=== PATIENT | male | born 1955 | race Caucasian/White ===

== ENCOUNTER 2017-12-29 13:00 | Inpatient (IN) | payer BC ==
[2018-01-05] MEDS ORDERED: VANCOMYCIN HCL 1,000 MG in DEXTROSE 5 % IN WATER 250 ML IVPB ONE ×2 (06:00)
[2018-01-05] MEDS ORDERED: FAMOTIDINE 20MG TABLET PO ONE (06:00)
[2018-01-05] MEDS ORDERED: METOCLOPRAMIDE 10 MG TABLET PO ONE (06:00)
[2018-01-05] MEDS ORDERED: CEFAZOLIN 2 Gram 2 GM/50 ML BAG IVPB ONE (06:00)
[2018-01-05] MEDS ORDERED: CELECOXIB 100 MG CAPSULE PO ONE (06:00)
[2018-01-05] MEDS ORDERED: MECLIZINE 25 MG TABLET PO ONE (06:00)
[2018-01-05 09:01] LABS: ABO GROUP A; ANTIBODY SCREEN NEGATIVE (NEGATIVE); RH TYPE POSITIVE
[2018-01-05] MEDS ORDERED: 0.9 % SODIUM CHLORIDE 10 ML VIAL IVP ONE (10:44)
[2018-01-05] MEDS ORDERED: TRANEXAMIC ACID 1,000 MG/10 ML ML IV ONE ×2 (10:44→14:11)
[2018-01-05] MEDS ORDERED: HYDROCODONE/APAP 10/325 TABLET PO PRN (12:40)
[2018-01-05] MEDS ORDERED: TRAMADOL HCL 50 MG TABLET PO PRN (12:40)
[2018-01-05] MEDS ORDERED: ACETAMINOPHEN W/ CODEINE 300MG/60MG TABLET PO PRN ×2 (12:40)
[2018-01-05] MEDS ORDERED: KETOROLAC 30 MG/ML VIAL IVP PRN ×2 (12:40)
[2018-01-05] MEDS ORDERED: DIPHENHYDRAMINE HCL 25 MG CAPSULE PO PRN (12:40)
[2018-01-05] MEDS ORDERED: NALOXONE 0.4 MG/1 ML VIAL IVP PRN (12:40)
[2018-01-05] MEDS ORDERED: BISACODYL 10 MG SUPP RC PRN (12:40)
[2018-01-05] MEDS ORDERED: MAGNESIUM HYDROXIDE 30 ML UDC PO PRN (12:40)
[2018-01-05] MEDS ORDERED: ZOLPIDEM TARTRATE 5 MG TABLET PO PRN (12:40)
[2018-01-05] MEDS ORDERED: HYDROMORPHONE HCL 2 MG/ML VIAL IM PRN (12:40)
[2018-01-05] MEDS ORDERED: ONDANSETRON HCL IV 4 MG/2 ML VIAL IVP PRN (12:40)
[2018-01-05] MEDS ORDERED: AL HYDROX/MAG HYDROX 30ML UD PO PRN (12:40)
[2018-01-05] MEDS ORDERED: ACETAMINOPHEN 325 MG TAB PO PRN (12:40)
[2018-01-05] MEDS ORDERED: DEXAMETHASONE 4 MG/ML 1ML VIAL IVP ONE (13:08)
[2018-01-05] MEDS ORDERED: ROPIVACAINE HCL (NAROPIN) /PF 5MG/ML 20ML VIAL IV ONE (13:08)
[2018-01-05] MEDS ORDERED: BUPIVACAINE 0.75% IVP ONE (14:11)
[2018-01-05] MEDS: HYDROCODONE/APAP 10/325 TABLET PO PRN ×3 (14:51→22:23)
[2018-01-05] MEDS: GABAPENTIN 300 MG CAPSULE PO SCH ×2 (15:27→22:23)
[2018-01-05] MEDS: PANTOPRAZOLE SODIUM 40 MG TABLET PO SCH (15:27)
[2018-01-05] MEDS: CITALOPRAM 20 MG TABLET PO SCH (15:27)
--- NOTE | 2018-01-05 15:48 | Rehab Evaluation ---
Patient Information - Patient Information Diagnosis: DJD L knee Ordered Treatment: PT Evaluate and Treat Status: Initial Evaluation Surgery: Yes (L TKA) Date of Surgery: 01/05/18 Past Medical/Surgical Hx: PAST MEDICAL/SURGICAL HISTORY Past Surgical History bilat knee scope neck sx fusion appy thyroidectomy gallstones born without a gallbladder c scopes PMH - Respiratory Hx Respiratory Disorders No Comment: hx fx ribs PMH - Cardiovascular Hx Cardiovascular Disorders Yes Hx Hypertension Yes: on meds good control Exercise Tolerance Fair Comment: high cholesterol PMH - Neuro Hx Neurological Disorders No PMH - GI Hx Gastrointestinal Disorders Yes Hx Abdominal Pain Yes Hx Gastroesophageal Reflux Yes PMH - Hx Genitourinary Disorders Yes Hx Bladder Problem Yes: urine frequency on meds Hx Prostate Problems Yes: BPH PMH - Endocrine Hx Endocrine Disorders Yes Hx Thyroid Disease Yes: thyroidectomy yrs ago PMH - Musculoskeletal Hx Musculoskeletal Disorders Yes Hx Arthritis Yes: Bilateral knees PMH - Psych Hx Psychiatric Problems Yes Hx Anxiety Yes Hx Depression Yes: onset about 4 months ago with health issues was hospitalized Major Depressive Episode Yes Feelings of Hopelessness Yes PMH - Hematology/Oncology Hx Hematology/Oncology Yes Disorders Hx Bruising Yes: bruises easily Premorbid Status: Detail (prior to surgery the patient was independent with all mobility.) Social History: Detail (The patient lives with spouse in a one story house with basement. The patient's house has 4 steps at the enterance with a railing in the middle. The patient's bathroom is equipped with tub/shower combination with grab bars, hand held shower and tub bench and a standard toilet without grab bars. The patient has a walker with wheels.) Precautions: [place], Fall, Other (WBAT on the L LE.) - Time With Patient Total Time Spent With Patient (Min): 20 Treatment Procedures: Detail (Initial Evaluation and Gait training) Subjective Information - Subjective Information Per Patient (The patient complained of level 7 pain using 0 to 10 pain scale in L hamstring insertion region and quadriceps. The patient stated he was having difficulty getting comfortable and frequently changed position.) Objective Data - Mental Status Patient Orientation: Oriented x3 - Visual Perception Appears within normal limits for therapeutic activities - ROM Not within normal limits (The patient's L knee AROM was limited s/p surgery. All other LE AROM was WNL.) - Strength/Tone Not within normal limits (The patient's L LE strength was not tested secondary to status post surgery, however was functional ie: patient was able to acheive SLR. The patient's R LE strength was 4+ to 5/5 throughout.) - Bed Mobility Needs Assist (Not formally assessed. The patient was ambulating with RN when PT arrived.) - Transfers Independent (Independent with sit to and from stand transfer.) - Balance Balance Sitting: Good Balance Standing: Good - Sensation Intact - Gait Detail (The patient ambulated independently with front wheeled walker WBAT on the L LE a distance of 80 feet x 1 with assist of one to handle IV.) Therapy Assessment - Therapy Assessment Detail ( The patient was independent with ambulation and transfers. TKA HEP was not refused secondary to L knee pain. Feel the patient will progress well with mobility.) Problem List - Problem List Physical Therapy Problem List: Detail (1) Decreased L knee AROM and strength as to be expected following surgery 2) L knee pain 3) Nonambulatory on stairs) Goals - Goals Physical Therapy Goals: 1) The patient will be independent with bed mobility. 2 ) The patient will ambulate on stairs with supervision for safety only. 3) The patient will be independent with TKA HEP Prognosis - Prognosis Good Plan - Plan Physical Therapy Plan: PT 1-2 times a day for gait training on stairs, bed mobility and instruction in HEP.
--- NOTE | 2018-01-05 15:51 | Rehab Evaluation ---
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 a gallbladder c scopes PMH - Respiratory Hx Respiratory Disorders No Comment: hx fx ribs PMH - Cardiovascular Hx Cardiovascular Disorders Yes Hx Hypertension Yes: on meds good control Exercise Tolerance Fair Comment: high cholesterol PMH - Neuro Hx Neurological Disorders No PMH - GI Hx Gastrointestinal Disorders Yes Hx Abdominal Pain Yes Hx Gastroesophageal Reflux Yes PMH - Hx Genitourinary Disorders Yes Hx Bladder Problem Yes: urine frequency on meds Hx Prostate Problems Yes: BPH PMH - Endocrine Hx Endocrine Disorders Yes Hx Thyroid Disease Yes: thyroidectomy yrs ago PMH - Musculoskeletal Hx Musculoskeletal Disorders Yes Hx Arthritis Yes: Bilateral knees PMH - Psych Hx Psychiatric Problems Yes Hx Anxiety Yes Hx Depression Yes: onset about 4 months ago with health issues was hospitalized Major Depressive Episode Yes Feelings of Hopelessness Yes PMH - Hematology/Oncology Hx Hematology/Oncology Yes Disorders Hx Bruising Yes: bruises easily Premorbid Status: Detail (Pt lives with spouse in a 1 story house with basement , he stays on the main floor. He has 4 steps with a handrail in the center of the steps at his entrance. He has a tub/shower combination with grab bars, hand held shower and shower seat as well as a standard height toilet without grab bars. He has a 2 wheeled walker. His is responsible for home mgmt, meal prep and laundry and he is responsible for yard work. His sons will assist with this as needed.) Social History: Detail (Supportive ) Precautions: [place], Fall, Other (WBAT right LE) - Time With Patient Total Time Spent With Patient (Min): 30 Treatment Procedures: Detail (OT eval low complexity) Subjective Information - Subjective Information Per Patient Objective Data - Pain Pain Present: Yes (09/29) - Mental Status Patient Orientation: Oriented x3 - Visual Perception Appears within normal limits for therapeutic activities (Pt wears glasses at all times.) - ROM Within normal limits (Jeffrey UE WNL) - Strength/Tone Within normal limits (Jeffrey UE strength WNL) - Coordination Appears within normal limits for therapeutic activities - Transfers Independent (Sit to stand from chair height Indly.) - Balance Balance Sitting: Good Balance Standing: Good - Sensation Intact - Gait Detail (Pt ambulated in hallway with 2 wheeled walker and SBA.) - ADL's/IADL's Detail (Pt educated and able to demonstrate learning of modified LE dressing techniques including shorts, slipper socks and tennis shoes. Reviewed shower safety and pt able to verbalize understanding.) Therapy Assessment - Therapy Assessment Detail (Pt is Ind with LE dressing and self care activities.) Problem List - Problem List Occupational Therapy Problem List: Detail (No current OT problems identified.) Goals - Goals Occupational Therapy Goals: No current OT goals identified. Prognosis - Prognosis Good Plan - Plan Occupational Therapy Plan: No further IP OT recommended. Thank you for this referral.
--- NOTE | 2018-01-05 16:52 | Operative Note ---
DATE OF SURGERY: 01/05/18 PREOPERATIVE DIAGNOSIS: END-STAGE ARTHROSIS OF THE RIGHT KNEE. POSTOPERATIVE DIAGNOSIS: END-STAGE ARTHROSIS OF THE RIGHT KNEE. PROCEDURE: CEMENTED RIGHT TOTAL KNEE ARTHROPLASTY USING BRANDT-NEPHEW DASHAWN II COMPONENTS WITH A SIZE 6 OXINIUM FEMUR, A SIZE 5 STEM TIBIAL BASEPLATE, A 9 mm LIPPED HIGHLY CROSSLINKED TIBIAL INSERT, AND A 35 MM ALL-PLASTIC PATELLA. STAFF SURGEON: SANCHEZ SWEENEY M.D. ANESTHESIA: SPINAL. PREPARATION: CHLORAPREP. INDIVIDUAL CONSIDERATIONS: NONE. PROCEDURE: The patient was taken to the Operating Room and placed supine on the operating table. He had a successful induction of a spinal anesthetic. His right lower extremity was prepped and draped in the usual fashion. Limb was elevated. The tourniquet was inflated to 250 mmHg. The patient had midline approach to the knee. Sharp dissection was carried down through the skin and subcutaneous tissues. Small veins were coagulated with a Bovie. A medial arthrotomy was performed. Patella was everted and the knee was flexed. He had exposed bone in the medial and patellofemoral compartments with bone loss medially. The ACL was sacrificed, capsule was released from the medial proximal tibia, provisional anterior meniscectomies were performed, and the fat pad was resected. The initial femoral aerial applicator pilot hole was then made freehand. The intramedullary femoral cutting jig was placed. It was cut in 7.0 degrees of valgus and adjusted for rotation and secured with pins for a 10 mm resection. The initial transverse cut was then made. Skin guide was placed in the anterior and posterior aerial applicator pilot holes. It was found that a size 6 would be appropriate. The anterior and posterior cuts followed by chamfer cuts were made and osteophytes were removed, and a size 6 trial was placed and found to fit well. The tibia was brought forward and the remainder of the meniscal remnants were removed with a Bovie. The extra-articular tibial cutting jig was placed. It was cut in neutral with a 3-degree AP slope. Care was taken to adjust for rotation and flexion using the extra-articular alignment guide and bony landmarks. It was set for a 9 mm resection and keyed off the high lateral side and secured with pins. When cutting the tibia, care was taken to preserve the PCL insertion on the tibia. Large medial osteophytes were removed and I was able to fit a size 5 baseplate. It was adjusted for rotation and secured with pins. With a 9 mm trial and femoral trial, there was excellent motion and stability, ligamentous balance, rotation, and alignment were thought to be normal. The femoral aerial applicator pilot holes were impacted and the triflange tibial stamp was impacted, and these trial components were removed. The patient had a thick patella and I was able to remove about 9 mm of bone freehand and easily fit a 35 patella and the three aerial applicator pilot holes were then drilled. The tourniquet was let down briefly to get bleeders posteriorly and then placed back up again. The knee was then thoroughly irrigated out with pulsatile Betadine and saline to remove any visual or palpable debris. Bony surfaces were then dried. A size 5 stemmed tibial baseplate was cemented into place, followed by impaction of the 9 mm lipped tibial insert, followed by cementing the size 6 Oxinium femur, followed by cementing in a 35 mm patella. Implant surfaces were compressed, excess cement was removed, and after the cement had set, there was excellent motion and stability, ligamentous balance, rotation, alignment, and patellofemoral tracking were normal. No lateral release was required. The tourniquet was let down. Hemostasis was obtained with a Bovie. The periosteum, skin, and subcut were infiltrated with 30 mL of 0.5% Marcaine with Epinephrine. The capsule was then closed with a running #2 quill, the subcutaneous was closed in layers with running 0 Quill, and the skin was closed with zelda. The patient did receive 1 gram of Tranexamic Acid preoperatively IV. I mixed 1 gram of Tranexamic Acid with 30 mL of saline and injected it into the knee through a sterile needle and a sterile Bulkee compressive MIHAELA-type dressing was applied. The patient tolerated the procedures well. Needle and sponge counts were correct. Estimated blood loss was 175 mL and he was taken back to Recovery in good condition. There were no complications. cc: JOB NUMBER: [id number] MTDD
[2018-01-05] MEDS: CEFAZOLIN 2 Gram 2 GM/50 ML BAG IVPB SCH (18:27)
[2018-01-05] MEDS: POTASSIUM CHLORIDE/D5-0.9%NACL 20 MEQ/1,000 ML BAG IV SCH ×2 (19:43→21:51)
[2018-01-05] MEDS: DOCUSATE SODIUM 100 MG CAPSULE PO SCH (22:22)
[2018-01-06] MEDS: CEFAZOLIN 2 Gram 2 GM/50 ML BAG IVPB SCH ×2 (02:25→10:19)
[2018-01-06] MEDS: PANTOPRAZOLE SODIUM 40 MG TABLET PO SCH (06:25)
[2018-01-06] MEDS: HYDROCODONE/APAP 10/325 TABLET PO PRN ×2 (06:27→08:57)
[2018-01-06] MEDS: POTASSIUM CHLORIDE/D5-0.9%NACL 20 MEQ/1,000 ML BAG IV SCH (06:29)
[2018-01-06 06:56] LABS: HEMATOCRIT 41.1 % (42.0-52.0); HEMOGLOBIN 13.6 gm/dl (14.0-18.0)
[2018-01-06] MEDS ORDERED: LEVOTHYROXINE SODIUM 100 MCG TABLET PO SCH (07:00)
[2018-01-06 07:09] LABS: BLOOD UREA NITROGEN 14 mg/dL (8-23); CREATININE 0.7 mg/dL (0.7-1.2); EST GLOMERULAR FILTRATION RATE > 60 mL/min; GLUCOSE,RANDOM 92 mg/dL (74-109)
[2018-01-06] MEDS: DOCUSATE SODIUM 100 MG CAPSULE PO SCH (09:14)
[2018-01-06] MEDS: CITALOPRAM 20 MG TABLET PO SCH (09:14)
[2018-01-06] MEDS: GABAPENTIN 300 MG CAPSULE PO SCH (09:15)
[2018-01-06] MEDS ORDERED: TAMSULOSIN HCL 0.4 MG CAP.ER.24H PO SCH (10:00)
[2018-01-06] MEDS ORDERED: FERROUS SULFATE 325 MG TAB PO SCH (10:00)
[2018-01-06] MEDS ORDERED: RIVAROXABAN 10 MG TABLET PO SCH (10:00)
[2018-01-06] MEDS ORDERED: LORATADINE 10 MG TABLET PO SCH (10:00)
--- NOTE | 2018-01-06 10:23 | Physical Therapy Tx Note ---
Physical Therapy Tx Note - Treatment Note Tolerated: Good Total Time Spent With Patient: 20 Physical Therapy Tx Note: Detail (The patient was in bed when PT arrived and stated his L knee pain was not too bad. The patient ambulated independently with wheeled walker 250 feet x 1 WBAT on the L LE. The patient ambulated on 3 steps with supervision for safety only using proper technique. The patient's TKA HEP was reviewed and included the following: seat and supine heel slides, LAQ, ankle pumps, quad sets, gluteal sets, hamstring sets and SLR. The patient completed all exercises using proper technique. The patient has met all inpatient PT goals and is discharged from inpatient PT at this time. The patient is to continue with Home PT.) Physical Therapy Problem List: Detail (1) Decreased L knee AROM and strength as to be expected following surgery 2) L knee pain 3) Nonambulatory on stairs) Physical Therapy Goals: GOALS MET: 1) The patient will be independent with bed mobility. 2) The patient will ambulate on stairs with supervision for safety only. 3) The patient will be independent with TKA HEP Physical Therapy Plan: All inpatient PT goals have been met and the patient is discharged from inpatient PT. The patient is to continue with Home PT.
[2018-01-06] MEDS ORDERED: PROPOFOL 10 MG/ML VIAL IV ONE (12:29)
[2018-01-06] MEDS ORDERED: MIDAZOLAM HCL 2MG/2ML VIAL IV ONE (12:29)
[2018-01-06] MEDS ORDERED: *PACU ONLY* KETAMINE HCL 10 MG/ML (20ML) VIAL IV ONE (12:29)
--- NOTE | 2018-01-06 20:11 | Discharge Summary ---
DATE OF ADMISSION: 01/05/2018 DATE OF DISCHARGE: 01/06/2018 DATE OF SURGERY: 01/05/2018 HISTORY: Mr. Roland is a delightful 62-year-old male who presents with end- stage arthrosis of his right knee. He was admitted after right total knee arthroplasty. Postoperatively he did well. His hospital course was unremarkable. His discharge hemoglobin was 13.6. He did not require transfusion. DISCHARGE INSTRUCTIONS: The plan is to discharge him to home in the care of his family. Home PT and Visiting Nurse has been arranged. The Visiting Nurse will remove his sutures in two weeks. He will follow-up in my office in four weeks. He will be given Xarelto with Aspirin for DVT prophylaxis and [place] for pain. FINAL DIAGNOSIS/PRIMARY DIAGNOSIS: END-STAGE ARTHROSIS OF THE RIGHT KNEE. OPERATIONS AND PROCEDURES: CEMENTED RIGHT TOTAL KNEE ARTHROPLASTY. DISCHARGE CONDITION: GOOD. JOB NUMBER: [id number] MTDD
== END 2018-01-06 12:30 | disposition home health service (06) | DRG 470 ==
LOC: MEDSURG 01-05 07:41
PROVIDERS: ADMIT Orthopaedic Surgery; ATTEND Orthopaedic Surgery
PROC: 0SRC069 Replacement of Right Knee Joint with Oxidized Zirconium on Polyethylene Synthetic Substitute, Cemented, Open Approach (ICD-10-PCS; principal; 2018-01-05 10:15)
DX: M17.11 Unilateral primary osteoarthritis, right knee (principal)
CPT/HCPCS: 80048; 85014; 85018; 86850; 86900; 86901; 97530; C9290; J1885; J2405; J7060

== ENCOUNTER 2018-02-08 13:00 | Inpatient (IN) | payer BC ==
[2018-02-16] MEDS ORDERED: VANCOMYCIN HCL 1,000 MG in DEXTROSE 5 % IN WATER 250 ML IVPB ONE ×2 (06:00)
[2018-02-16] MEDS ORDERED: METOCLOPRAMIDE 10 MG TABLET PO ONE (06:00)
[2018-02-16] MEDS ORDERED: MECLIZINE 25 MG TABLET PO ONE (06:00)
[2018-02-16] MEDS ORDERED: CELECOXIB 100 MG CAPSULE PO ONE (06:00)
[2018-02-16] MEDS ORDERED: FAMOTIDINE 20MG TABLET PO ONE (06:00)
[2018-02-16] MEDS ORDERED: CEFAZOLIN 2 Gram 2 GM/50 ML BAG IVPB ONE (06:00)
[2018-02-16 10:24] LABS: ABO GROUP A; ANTIBODY SCREEN NEGATIVE (NEGATIVE); RH TYPE POSITIVE
[2018-02-16] MEDS ORDERED: MAGNESIUM HYDROXIDE 30 ML UDC PO PRN (12:33)
[2018-02-16] MEDS ORDERED: ACETAMINOPHEN W/ CODEINE 300MG/60MG TABLET PO PRN ×2 (12:33)
[2018-02-16] MEDS ORDERED: DIPHENHYDRAMINE HCL 25 MG CAPSULE PO PRN (12:33)
[2018-02-16] MEDS ORDERED: BISACODYL 10 MG SUPP RC PRN (12:33)
[2018-02-16] MEDS ORDERED: ONDANSETRON HCL IV 4 MG/2 ML VIAL IVP PRN (12:33)
[2018-02-16] MEDS ORDERED: HYDROCODONE/APAP 10/325 TABLET PO PRN (12:33)
[2018-02-16] MEDS ORDERED: ACETAMINOPHEN 325 MG TAB PO PRN (12:33)
[2018-02-16] MEDS ORDERED: AL HYDROX/MAG HYDROX 30ML UD PO PRN (12:33)
[2018-02-16] MEDS ORDERED: KETOROLAC 30 MG/ML VIAL IVP PRN ×2 (12:33)
[2018-02-16] MEDS ORDERED: TRAMADOL HCL 50 MG TABLET PO PRN (12:33)
[2018-02-16] MEDS ORDERED: ZOLPIDEM TARTRATE 5 MG TABLET PO PRN (12:33)
[2018-02-16] MEDS ORDERED: NALOXONE 0.4 MG/1 ML VIAL IVP PRN (12:33)
[2018-02-16] MEDS ORDERED: HYDROMORPHONE HCL 2 MG/ML VIAL IM PRN (12:33)
[2018-02-16] MEDS ORDERED: DEXAMETHASONE 4 MG/ML 1ML VIAL IVP ONE (14:00)
[2018-02-16] MEDS ORDERED: *PACU ONLY* KETAMINE HCL 10 MG/ML (20ML) VIAL IV ONE (14:00)
[2018-02-16] MEDS ORDERED: BUPIVACAINE 0.5% W/EPI MPF 30 ML VIAL IVP ONE (14:00)
[2018-02-16] MEDS ORDERED: PROPOFOL 10 MG/ML VIAL IV ONE (14:00)
[2018-02-16] MEDS ORDERED: MIDAZOLAM HCL 2MG/2ML VIAL IV ONE (14:00)
[2018-02-16] MEDS ORDERED: TRANEXAMIC ACID 1,000 MG/10 ML ML IV ONE ×2 (14:00→16:00)
[2018-02-16] MEDS ORDERED: ROPIVACAINE HCL (NAROPIN) /PF 5MG/ML 20ML VIAL IV ONE (14:00)
--- NOTE | 2018-02-16 15:16 | Rehab Evaluation ---
Patient Information - Patient Information Diagnosis: L Knee OA Ordered Treatment: PT Evaluate and Treat Status: Initial Evaluation Surgery: Yes (L Knee TKA) Date of Surgery: 02/16/18 Past Medical/Surgical Hx: PAST MEDICAL/SURGICAL HISTORY Surgery to Affected Area? Yes Recent Surgery? Past Surgical History RTKA 01-05-18 bilat knee scope neck sx fusion appy thyroidectomy gallstones born without a gallbladder c scopes PMH - Respiratory Hx Respiratory Disorders No Comment: hx fx ribs PMH - Cardiovascular Hx Cardiovascular Disorders Yes Hx Hypertension Yes: on meds good control Exercise Tolerance Good Comment: high cholesterol PMH - Neuro Hx Neurological Disorders No PMH - GI Hx Gastrointestinal Disorders Yes Hx Abdominal Pain Yes Hx Gastroesophageal Reflux Yes PMH - Hx Genitourinary Disorders Yes Hx Bladder Problem Yes: urine frequency on meds Hx Prostate Problems Yes: BPH PMH - Endocrine Hx Endocrine Disorders Yes Hx Thyroid Disease Yes: thyroidectomy yrs ago PMH - Musculoskeletal Hx Musculoskeletal Disorders Yes Hx Arthritis Yes: Bilateral knees PMH - Psych Hx Psychiatric Problems Yes Hx Anxiety Yes Hx Depression Yes: onset about 4 months ago with health issues was hospitalized PMH - Hematology/Oncology Hx Hematology/Oncology Yes Disorders Hx Bruising Yes: bruises easily Premorbid Status: Detail (Patient was previously IND with all mobility and ADL' s.) Social History: Detail (Patient lives in a one story home with his spouse. The home has 4 steps to enter with one railing in the middle of the steps. The patient has a tub/shower combo with grab bars, and a standard toilet. He owns a front wheeled walker, a cane, and a shower bench.) Precautions: [place], Fall, Other (WBAT on L LE.) - Time With Patient Total Time Spent With Patient (Min): 30 Treatment Procedures: Detail (Initial eval, gait training and education.) Subjective Information - Subjective Information Per Patient (Patient complained of slight aching in L knee.) Objective Data - Pain Pain Present: Yes (Patient did rate his pain using 0-10 pain scale.) - Mental Status Patient Orientation: Oriented x3 - Visual Perception Appears within normal limits for therapeutic activities - ROM Not within normal limits (Patient is currently limited in B knee AROM LE due to status post-surgery, and surgery 6 weeks ago, all other LE AROM are WNL.) - Strength/Tone Not within normal limits (Patient is currently limited in L LE due to status post-surgery.) - Bed Mobility Independent (Patient was IND with all bed mobility including supine to and from sit and scooting up in bed.) - Transfers Independent (Patient was IND with sit to stand transfer.) - Balance Balance Sitting: Good Balance Standing: Good - Sensation Intact - Gait Detail (Patient ambulated 154' using a standard walker and SBA for safety. WBAT on L LE. Patient required verbal cues for correct foot placement while using the walker.) Therapy Assessment - Therapy Assessment Detail (Patient was IND with all mobility and transfers, supervision for safety with ambulation. Feel the patient will progress well with mobility. The patient was instructed to call Nursing staff if he needed to get up. The patient was left in bed with call light within reach.) Patient Education - Patient Education Teaching Topic: Exercise/Activity (Patient was educated on LE exercises including ankle pumps, heel slides, straight leg raise, glut sets, quad sets, and hamstring sets.) Response: Return Demonstration, Verbalize Understanding Teaching Method: Demonstration, Audiovisual Teaching Recipient: Patient Barriers To Learning: Age Related Problem List - Problem List Physical Therapy Problem List: Detail (1) B LE limited AROM 2) L LE decreased strength) Goals - Goals Physical Therapy Goals: 1) Complete stair training. All other IP goals met. Prognosis - Prognosis Good Plan - Plan Physical Therapy Plan: Patient will be seen 1 more time for stair training. Patient has OP PT scheduled after discharge.
[2018-02-16] MEDS: POTASSIUM CHLORIDE/D5-0.9%NACL 20 MEQ/1,000 ML BAG IV SCH ×3 (15:36→23:27)
[2018-02-16] MEDS ORDERED: 0.9 % SODIUM CHLORIDE 10ML SYR IVP ONE (16:00)
[2018-02-16] MEDS: HYDROCODONE/APAP 10/325 TABLET PO PRN ×2 (18:00→21:49)
[2018-02-16] MEDS: CEFAZOLIN 1 Gram 2 GM/100 ML BAG IVPB SCH (18:01)
[2018-02-16] MEDS ORDERED: CEFAZOLIN 2 G in 0.9% SODIUM CHLORIDE 50ML 50 ML IM ONE (18:30)
[2018-02-16] MEDS: DOCUSATE SODIUM 100 MG CAPSULE PO SCH (21:49)
[2018-02-17] MEDS: CEFAZOLIN 1 Gram 2 GM/100 ML BAG IVPB SCH ×2 (01:39→11:09)
[2018-02-17] MEDS: HYDROCODONE/APAP 10/325 TABLET PO PRN ×3 (01:40→11:15)
[2018-02-17] MEDS: POTASSIUM CHLORIDE/D5-0.9%NACL 20 MEQ/1,000 ML BAG IV SCH (05:45)
[2018-02-17] MEDS ORDERED: PANTOPRAZOLE SODIUM 40 MG TABLET PO SCH (07:00)
[2018-02-17] MEDS ORDERED: LEVOTHYROXINE SODIUM 100 MCG TABLET PO SCH (07:00)
[2018-02-17 07:01] LABS: HEMATOCRIT 40.2 % (42.0-52.0); HEMOGLOBIN 12.9 gm/dl (14.0-18.0)
[2018-02-17 07:14] LABS: BLOOD UREA NITROGEN 12 mg/dL (8-23); CREATININE 0.6 mg/dL (0.7-1.2); EST GLOMERULAR FILTRATION RATE > 60 mL/min; GLUCOSE,RANDOM 128 mg/dL (74-109)
[2018-02-17] MEDS ORDERED: BUPIVACAINE 0.5% W/EPI MPF 30 ML VIAL IVP ONE (08:24)
[2018-02-17] MEDS ORDERED: TRANEXAMIC ACID 1,000 MG/10 ML ML IV ONE (08:24)
[2018-02-17] MEDS: DOCUSATE SODIUM 100 MG CAPSULE PO SCH (09:17)
--- NOTE | 2018-02-17 09:40 | Physical Therapy Tx Note ---
Physical Therapy Tx Note - Treatment Note Tolerated: Good Total Time Spent With Patient: 15 Physical Therapy Tx Note: Detail (Patient had no complaints of pain. Patients B knee ROM was measured (L knee ext = 5, L knee flexion = 97, R knee ext = 8, R knee flexion = 95). Patient ambulated a flight of 3 stairs with a folded walker , hand rail, and supervision assist for safety. Patient also ambulated 158' with a standard walker and supervision assist for safety, patient is WBAT on L LE. Patient is IND with all mobility and transfers.) Physical Therapy Problem List: Detail (1) B LE limited AROM 2) L LE decreased strength) Physical Therapy Goals: 1) Complete stair training. (Goal Met). All other IP goals met. Prognosis: Good Physical Therapy Plan: Patient has met all IP goals. Patient will be dicharged to OP PT.
[2018-02-17] MEDS ORDERED: RIVAROXABAN 10 MG TABLET PO SCH (10:00)
[2018-02-17] MEDS ORDERED: FERROUS SULFATE 325 MG TAB PO SCH (10:00)
[2018-02-17] MEDS ORDERED: TAMSULOSIN HCL 0.4 MG CAP.ER.24H PO SCH (10:00)
--- NOTE | 2018-02-17 14:17 | Rehab Evaluation ---
Patient Information - Patient Information Diagnosis: DJD Left knee Ordered Treatment: OT Evaluate and Treat Status: Initial Evaluation Surgery: Yes (L Knee TKA) Date of Surgery: 02/16/18 Past Medical/Surgical Hx: PAST MEDICAL/SURGICAL HISTORY Surgery to Affected Area? Yes Recent Surgery? Past Surgical History RTKA 01-05-18 bilat knee scope neck sx fusion appy thyroidectomy gallstones born without a gallbladder c scopes PMH - Respiratory Hx Respiratory Disorders No Comment: hx fx ribs PMH - Cardiovascular Hx Cardiovascular Disorders Yes Hx Hypertension Yes: on meds good control Exercise Tolerance Good Comment: high cholesterol PMH - Neuro Hx Neurological Disorders No PMH - GI Hx Gastrointestinal Disorders Yes Hx Abdominal Pain Yes Hx Gastroesophageal Reflux Yes PMH - Hx Genitourinary Disorders Yes Hx Bladder Problem Yes: urine frequency on meds Hx Prostate Problems Yes: BPH PMH - Endocrine Hx Endocrine Disorders Yes Hx Thyroid Disease Yes: thyroidectomy yrs ago PMH - Musculoskeletal Hx Musculoskeletal Disorders Yes Hx Arthritis Yes: Bilateral knees PMH - Psych Hx Psychiatric Problems Yes Hx Anxiety Yes Hx Depression Yes: onset about 4 months ago with health issues was hospitalized PMH - Hematology/Oncology Hx Hematology/Oncology Yes Disorders Hx Bruising Yes: bruises easily Premorbid Status: Detail (Pt lives with spouse in a 1 story house with basement. He has 4 steps with a center railing at the entrance. He has a tub/ shower combination with a shower seat and hand held shower and a standard height toilet, no grab bar. His spouse will be completing all home mgmt, meal prep and laundry tasks. He has a 2 wheeled walker.) Precautions: [place], Fall, Other (WBAT on L LE.) - Time With Patient Total Time Spent With Patient (Min): 40 Treatment Procedures: Detail (OT eval low complexity) Subjective Information - Subjective Information Per Patient Objective Data - Pain Pain Present: Yes (07/01) - Mental Status Patient Orientation: Oriented x3 - Visual Perception Appears within normal limits for therapeutic activities - ROM Within normal limits (Jeffrey UE AROM WNL) - Strength/Tone Within normal limits (Jeffrey UE strength WNL) - Coordination Appears within normal limits for therapeutic activities - Bed Mobility Independent (Ind with supine to sit) - Transfers Independent (Ind with sit to stand from EOB, toilet and chair.) - Balance Balance Sitting: Good Balance Standing: Good - Sensation Intact - Gait Detail (Pt ambulating in hallway with 2 wheeled walker Indly.) - ADL's/IADL's Detail (Pt educated and demonstrated Ind with modified technique during sponge bathing at sink and total body dressing at sink and EOB. Reviewed kitchen and bathroom safety and modifications, pt verbalizes learning.) Therapy Assessment - Therapy Assessment Detail (Pt is Ind with all self cares using modified techniques as needed.) Problem List - Problem List Physical Therapy Problem List: Detail (1) B LE limited AROM 2) L LE decreased strength) Occupational Therapy Problem List: Detail (No current OT problems identified.) Goals - Goals Physical Therapy Goals: 1) Complete stair training. (Goal Met). All other IP goals met. Occupational Therapy Goals: No current IP OT goals identified. Prognosis - Prognosis Good Plan - Plan Physical Therapy Plan: Patient has met all IP goals. Patient will be dicharged to OP PT. Occupational Therapy Plan: No further IP OT recommended. Thank you for this referral.
--- NOTE | 2018-02-19 10:19 | Operative Note ---
DATE: 02/16/2018 PREOPERATIVE DIAGNOSIS: END-STAGE ARTHROSIS OF THE LEFT KNEE. POSTOPERATIVE DIAGNOSIS: END-STAGE ARTHROSIS OF THE LEFT KNEE. PROCEDURE: Cemented left total knee arthroplasty using [employer] II components, with a size 6 Oxinium femur, a size 6 stemmed tibial baseplate, an 11 mm lipped tibial insert highly cross-linked, and a 35 mm all-plastic patella. STAFF SURGEON: SANCHEZ SWEENEY M.D. ANESTHESIA: SPINAL. PREPARATION: CHLORAPREP. INDIVIDUAL CONSIDERATIONS: NONE. PROCEDURE: The patient was taken to the Operating Room and placed supine on the operating table. He had the successful induction of a spinal anesthetic. The left lower extremity was then prepped and draped in the usual fashion. The patient had a midline approach to the knee. The limb was elevated and the tourniquet was inflated to 215 mmHg. Sharp dissection carried down through the skin and subcutaneous tissue. Small veins were coagulated with a Bovie. A medial arthrotomy was performed. The patella was everted and the knee was flexed. He had exposed bone with a large marginal osteophytes in the medial and patellofemoral compartments. The ACL was sacrificed, provisional anterior meniscectomies were performed, the capsule was released from the medial proximal tibia, and the fat pad was resected. The initial femoral airplane patrol pilot hole was then made freehand. The intramedullary femoral cutting jig was placed. It was cut in 7.0 degrees of valgus and adjusted for rotation and secured with pins for a 10 mm resection. The initial transverse cut was then made. The skin guide was placed in the anterior and posterior airplane patrol pilot holes. It was found that a size 6 would be appropriate. The anterior and posterior cuts followed by chamfer cuts were made. Osteophytes were removed and a size 6 trial was placed and found to fit well. The tibia was brought forward and the remainder of the meniscal remnants were removed with a Bovie. The extraarticular tibial cutting jig was placed. It was cut in neutral with a 3 degree AP slope. Care was taken to adjust for rotation and flexion using the extraarticular alignment guide and bony landmarks. It was set for a 9 mm resection, keyed off the high lateral side, and secured with pins. When cutting the tibia, care was taken to preserve the PCL insertion on the tibia. Large medial osteophytes were removed and I was able to actually fit a size 6 baseplate. It was adjusted for rotation and secured with pins. With an 11 mm trial and the femoral trial, there was excellent motion and stability. Ligamentous balance, rotation, and alignment were thought to be normal. The femoral airplane patrol pilot holes were impacted and the triphalangeal tibial stamp was impacted and these trial components were removed. The patient had a thick patella and roughly 9 mm of bone was removed with an oscillating saw. I was easily able to fit a large and the three airplane patrol pilot holes were drilled. The tourniquet was let down and hemostasis was obtained posteriorly with a Bovie and then placed back up again. The knee was then thoroughly irrigated out with pulsatile Betadine and saline to remove any visual or palpable debris. Bony surfaces were then dried. A size 6 stemmed tibial baseplate was cemented into place, followed by impaction of the 11 mm lipped tibial insert, followed by cementing in the size 6 Oxinium femur, followed by cementing in the 35 mm patella. Implant surfaces were compressed, excess cement was removed, and then after the cement had set, there was excellent motion and stability. Ligamentous balance, rotation and alignment and patellofemoral tracking were normal and no lateral release was required. The tourniquet was let down and hemostasis was obtained with a Bovie. The capsule was then closed with a running #2 Quill. The subcu was closed with a running 0 Quill, and the skin was closed with zelda. The skin and subcutaneous tissue was infiltrated with 30 mL of 0.5% Marcaine with Epinephrine along the periosteum. After closure, I then mixed a gram of Tranexamic Acid with 30 mL of saline and injected it into the knee through a sterile #18 gauge needle and a sterile compressive MIHAELA-type dressing was applied. The patient was taken back to the Recovery Room in good condition. There were no complications. Needle and sponge counts were correct. JOB NUMBER: [id number] MTDD
--- NOTE | 2018-02-19 10:23 | Discharge Summary ---
DATE OF ADMISSION: 02/16/2018 DATE OF DISCHARGE: 02/17/2018 DATE OF SURGERY: 02/16/2018 HISTORY: Fermín is a delightful 62-year-old male who presents with end-stage arthrosis of his left knee. He was admitted after a left total knee arthroplasty. Postoperatively, he did well. His hospital course was unremarkable. His discharge hemoglobin was 12.9. DISCHARGE INSTRUCTIONS: The plan is to discharge him to home in the care of his family. He is going to do outpatient physical therapy immediately. He will be given [place] for pain and Xarelto followed by Aspirin for DVT prophylaxis. He will follow-up in my office in two weeks for suture removal. FINAL DIAGNOSIS/PRIMARY DIAGNOSIS: END-STAGE ARTHROSIS OF THE LEFT KNEE. OPERATIONS AND PROCEDURES: CEMENTED LEFT TOTAL KNEE ARTHROPLASTY. DISCHARGE CONDITION: GOOD. JOB NUMBER: [id number] MTDD
== END 2018-02-17 13:20 | disposition home or self-care (01) | DRG 470 ==
LOC: MEDSURG 02-16 09:16
PROVIDERS: ADMIT Orthopaedic Surgery; ATTEND Orthopaedic Surgery
PROC: 0SRD069 Replacement of Left Knee Joint with Oxidized Zirconium on Polyethylene Synthetic Substitute, Cemented, Open Approach (ICD-10-PCS; principal; 2018-02-16 10:30)
DX: M17.12 Unilateral primary osteoarthritis, left knee (principal); E03.9 Hypothyroidism, unspecified; K21.9 Gastro-esophageal reflux disease without esophagitis; N40.0 Benign prostatic hyperplasia without lower urinary tract symptoms
CPT/HCPCS: 80048; 85014; 85018; 86850; 86900; 86901; J3480